=== PATIENT | female | born 1970 | race Caucasian/White ===

== ENCOUNTER → 2016-06-17 | Outpatient (CLI) | payer OTHER ==
--- NOTE | 2016-06-17 14:45 | US ---
EXAMINATION TYPE: US thyroid st tissue head/neck DATE OF EXAM: 06/17/2016 2:09 PM COMPARISON: NONE CLINICAL HISTORY: E04.1 THYROID NODULE. Patient states right side felt larger to doctor GLAND SIZE: Right Lobe: 4.6 x 1.5 x 1.2 cm Overall Parenchyma: homogenous Left Lobe: 4.1 x 1.4 x 1.1 cm Overall Parenchyma: homogeneous Isthmus Thickness: 0.3 cm NODULES RIGHT: # of nodules measured on right: 1 1. 0.3 X 0.3 x 0.2 cm cystic nodule with echogenic center at the mid pole with well-defined margin s. This nodule is wider than tall and shows no intranodular vascularity. Prior size: No previous LEFT: # of nodules measured on left: 1 1. 0.3 X 0.2 x 0.2 cm cystic nodule with echogenic center at the mid pole with well-defined margins . This nodule is wider than tall and shows no intranodular vascularity. Prior size: No previous ISTHMUS: # of nodules measured in the isthmus: 0 TECHNOLOGIST IMPRESSION: Bilateral neck scanned, no abnormal lymphadenopathy noted. Thyroid gland is normal in size with 2 small cystic nodules seen bilaterally, central colloid is susp ected. IMPRESSION: Thyroid gland is normal in size, no worrisome greater than 1 cm solid or cystic nodules are evident b ilaterally.
== END | disposition home or self-care (01) ==
LOC: RADUSWWP 13:11
PROVIDERS: ATTEND Otolaryngology
DX: E04.1 Nontoxic single thyroid nodule (principal)
CPT/HCPCS: 76536

== ENCOUNTER → 2017-01-12 | Outpatient (CLI) | payer OTHER ==
[2017-01-12 09:27] LABS: Cholesterol 253 mg/dL (<200); HDL Cholesterol 103 mg/dL (40-60)
--- NOTE | 2017-01-13 14:19 | MM ---
Reason for exam: screening (asymptomatic). Last mammogram was performed 1 year and 1 month ago. History: Patient had first child at age 35. Family history of breast cancer in grandmother. Physical Findings: A clinical breast exam by your physician is recommended on an annual basis and results should be correlated with mammographic findings. MG 3D Screening Mammo W/Cad Bilateral CC and MLO view(s) were taken. Prior study comparison: December 21, 2015, bilateral MG 3d screening mammo w/cad. November 30, 2014, bilateral MG screening mammo w CAD. The breast tissue is heterogeneously dense. This may lower the sensitivity of mammography. Finding: There are typically benign calcifications in the right breast. No significant changes in finding since December 21, 2015 and November 30, 2014. ASSESSMENT: Benign, BI-RAD 2 RECOMMENDATION: Routine screening mammogram of both breasts in 1 year.
== END | disposition home or self-care (01) ==
LOC: RADMAMWWP 07:47
PROVIDERS: ATTEND Obstetrics & Gynecology
DX: Z12.31 Encounter for screening mammogram for malignant neoplasm of breast (principal); E78.4 Other hyperlipidemia
CPT/HCPCS: 80061; 77063; G0202

== ENCOUNTER → 2018-01-15 | Outpatient (CLI) | payer OTHER ==
--- NOTE | 2018-01-19 08:47 | MM ---
Reason for exam: screening (asymptomatic). Last mammogram was performed 1 year ago. History: Patient had first child at age 35. Family history of breast cancer in grandmother. Physical Findings: A clinical breast exam by your physician is recommended on an annual basis and results should be correlated with mammographic findings. MG 3D Screening Mammo W/Cad Bilateral CC and MLO view(s) were taken. Prior study comparison: January 12, 2017, bilateral MG 3d screening mammo w/cad. December 21, 2015, bilateral MG 3d screening mammo w/cad. The breast tissue is heterogeneously dense. This may lower the sensitivity of mammography. No significant changes when compared with prior studies. ASSESSMENT: Negative, BI-RAD 1 RECOMMENDATION: Routine screening mammogram of both breasts in 1 year.
== END ==
LOC: RADMAMWWP 10:34
PROVIDERS: ATTEND Obstetrics & Gynecology
DX: Z12.31 Encounter for screening mammogram for malignant neoplasm of breast (principal)
CPT/HCPCS: 77063; 77067

== ENCOUNTER → 2019-02-21 | Outpatient (CLI) | payer OTHER ==
[2019-02-21 18:44] LABS: Chol/HDL Ratio 2.74; Cholesterol 290 mg/dL (0-200); Triglycerides <50.0 mg/dL (0.0-149.0)
== END | disposition home or self-care (01) ==
LOC: LABWHC1 14:24
PROVIDERS: ATTEND Obstetrics & Gynecology
DX: Z13.220 Encounter for screening for lipoid disorders (principal)
CPT/HCPCS: 36415; 80061

== ENCOUNTER → 2019-03-30 | Outpatient (CLI) | payer OTHER ==
--- NOTE | 2019-03-30 11:08 | MM ---
Reason for exam: screening (asymptomatic). Last mammogram was performed 1 year and 2 months ago. History: Patient had first child at age 35. Family history of breast cancer in grandmother. Physical Findings: A clinical breast exam by your physician is recommended on an annual basis and results should be correlated with mammographic findings. MG 3D Screening Mammo W/Cad Bilateral CC and MLO view(s) were taken. Prior study comparison: January 15, 2018, bilateral MG 3d screening mammo w/cad. January 12, 2017, bilateral MG 3d screening mammo w/cad. The breast tissue is heterogeneously dense. This may lower the sensitivity of mammography. There is no discrete abnormality. ASSESSMENT: Negative, BI-RAD 1 RECOMMENDATION: Routine screening mammogram of both breasts in 1 year.
== END | disposition home or self-care (01) ==
LOC: RADMAMWWP 08:07
PROVIDERS: ATTEND Obstetrics & Gynecology
DX: Z12.31 Encounter for screening mammogram for malignant neoplasm of breast (principal)
CPT/HCPCS: 77063; 77067

== ENCOUNTER → 2020-10-04 | Outpatient (CLI) | payer OTHER ==
--- NOTE | 2020-10-05 11:36 | MM ---
Reason for exam: screening (asymptomatic). Last mammogram was performed 1 year and 6 months ago. History: Patient had first child at age 35. Family history of breast cancer in maternal grandmother. Physical Findings: A clinical breast exam by your physician is recommended on an annual basis and results should be correlated with mammographic findings. MG 3D Screening Mammo W/Cad Bilateral CC and MLO view(s) were taken. Prior study comparison: March 30, 2019, bilateral MG 3d screening mammo w/cad. January 15, 2018, bilateral MG 3d screening mammo w/cad. The breast tissue is heterogeneously dense. This may lower the sensitivity of mammography. There is no discrete abnormality. ASSESSMENT: Negative, BI-RAD 1 RECOMMENDATION: Routine screening mammogram of both breasts in 1 year.
== END | disposition home or self-care (01) ==
LOC: RADMAMWWP 07:15
PROVIDERS: ATTEND Obstetrics & Gynecology
DX: Z12.31 Encounter for screening mammogram for malignant neoplasm of breast (principal); Z80.3 Family history of malignant neoplasm of breast
CPT/HCPCS: 77063; 77067

== ENCOUNTER → 2022-05-15 | Outpatient (CLI) | payer OTHER ==
--- NOTE | 2022-05-15 19:57 | MM ---
Reason for Exam: Screening (asymptomatic). Last mammogram was performed 1 year(s) and 7 month(s) ago. Patient History: Menarche at age 14. First Full-Term at age 35. Late child-bearing (after 30). Maternal grandmother had breast cancer. Last menstrual period: 03/28/2022 Risk Values: Martha 5 year model risk: 1.3%. NCI Lifetime model risk: 12.1%. Prior Study Comparison: 01/15/2018 Bilateral Screening Mammogram, [facility]. 03/30/2019 Bilateral Screening Mammogram, [facility]. 10/04/2020 Bilateral Screening Mammogram, [facility]. Tissue Density: The breast tissue is heterogeneously dense. This may lower the sensitivity of mammography. Findings: Analyzed By CAD. Asymmetric density medial left CC view anterior depth remains unchanged. There is no suspicious group of microcalcifications or new suspicious mass in either breast. Overall Assessment: Benign, BI-RAD 2 Management: Screening Mammogram of both breasts in 1 year. 1. Patient should continue monthly self breast exams. 2. A clinical breast exam by your physician is recommended on an annual basis. 3. This exam should not preclude additional follow-up of suspicious palpable abnormalities. Electronically signed and approved by: Macho Gaona M.D. Radiologist
== END | disposition home or self-care (01) ==
LOC: RADMAMWWP 06:54
PROVIDERS: ATTEND Obstetrics & Gynecology
DX: Z12.31 Encounter for screening mammogram for malignant neoplasm of breast (principal); Z80.3 Family history of malignant neoplasm of breast
CPT/HCPCS: 77063; 77067

== ENCOUNTER → 2024-02-23 | Outpatient (CLI) | payer OTHER ==
[2024-02-23 14:56] VITALS: BP 115/73; PULSE 65; RESP 16; TEMP 97.9
--- NOTE | 2024-02-23 16:51 | P.HPOB ---
History of Present Illness H&P Date: 02/23/24 Chief Complaint: Patient is here for her routine gynecologic exam This is a 53-year-old G2, P2 with an LMP of 11/13/2023. The patient is here to establish with this office. She previously saw Dr. Gilbert for her gynecologic care. Menstrual periods were regular prior to 2021 after 2021, her menstrual periods started spacing out. In 2022 she had menstrual periods in November and January. Her November menstrual period was her only 1 so far in 2023. She has been experiencing some hot flashes. In January she started having urinary symptoms including nocturia, dysuria and blood in the urine. She went to an urgent care clinic toward the end of January and was told she had a very bad urine infection. She was treated with an antibiotic for 1 week and did have some relief. About 2 weeks later she was again having urinary symptoms including blood in the urine. On 02/10/2024 she went back to the urgent care clinic and urinalysis was negative, but she was later called with the urine culture showing Enterobacter cloacae (>100K). She was started on Cipro for 10 days. She still has 2 more days of this antibiotic course she recently has noticed some low back discomfort without fever. She still notices some blood in the urine. Review of Systems The patient's weight has been stable over the last year. She denies respiratory, cardiac, or G.I. problems. : She has been having urinary symptoms with hematuria as described in the HPI. 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 History of Any Multi-Drug Resistant Organisms: None Reported Past Surgical History: Tubal Ligation Past Anesthesia/Blood Transfusion Reactions: No Reported Reaction Past Psychological History: No Psychological Hx Reported Smoking Status: Never smoker Past Alcohol Use History: None Reported Past Drug Use History: None Reported Additional History: She has been since 2002. 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 - Past Family History Mother Family Medical History: Diabetes Mellitus, Hyperlipidemia, Hypertension Additional Family Medical History / Comment(s): Type 2 diabetes. Father Family Medical History: Hyperlipidemia, Hypertension Medications and Allergies Home Medications Medication Instructions Recorded Confirmed Type Ciprofloxacin HCl [Cipro] 500 mg PO BID 10/22/24 10/22/24 History Allergies Allergy/AdvReac Type Severity Reaction Status Date / Time No Known Allergies Allergy Unverified 02/23/24 14:38 Exam Vital Signs Temp Pulse Resp BP Pulse Ox 02/23/24 14:40 97.9 F 65 16 115/73 100 Intake and Output 02/23/24 02/23/24 02/23/24 06:59 14:59 22:59 Other: Weight 62.142 kg Height 5 feet 4 inches, weight 137 pounds, BMI 23.5. This is a well-developed well-nourished white female who is alert and oriented times 3 in no acute distress. HEENT: Within normal limits. NECK: Supple without mass or thyromegaly. CHEST AND LUNGS: Clear to auscultation. HEART: Regular rate and rhythm. BREASTS: Are without mass or discharge. AXILLARY EXAM: Negative for adenopathy. BACK: Negative for CVA tenderness. ABDOMEN: Soft, nontender, without palpable masses. PELVIC EXAM: Normal external genitalia. Cervix and vagina appear normal. The cervix is slightly stenotic. There is no cervical motion tenderness. There is no unusual discharge or evidence of blood in the vagina. There is no evidence of prolapse. The uterus is midposition, nongravid size and nontender. There are no palpable adnexal masses or tenderness. RECTAL EXAM: Rectovaginal exam is negative for mass or tenderness and is negative for occult blood. EXTREMITIES: Nontender. IMPRESSION: 1. 53-year-old perimenopausal female with a 2-year history of oligomenorrhea and vasomotor symptoms. 2. Normal gynecologic exam. 3. Persistent urinary symptoms including hematuria and nocturia. She is currently on her second course of antibiotics. Her most recent urine culture on 02/10/2024 grew greater than 100,000 colonies per cc of Enterobacter cloacae which is sensitive to ciprofloxacin. She has 2 more days of a 10-day course of Cipro. No evidence of pyelonephritis on exam today. PLAN: 1. Pap smear cotest was performed. 2. Self breast exam was discussed. 3. She is due for a mammogram since her last 1 was done on 05/15/2022. The order slip will be mailed to the patient for this. 4. Clean-catch, midstream urinalysis was obtained. Since she is currently taking antibiotics, no urine culture will be obtained. I have instructed her to repeat the urine culture as recommended by the urgent care clinic and this should be done after the completion of her current antibiotic course. She will have the urine culture done at the urgent care clinic as planned. At this time I do not believe her urinary symptoms are related to any gynecologic problem. I have recommended that she establish with a primary care physician and if she is having recurrent urinary problems, consider referral to a urology doctor. 5. She will continue to keep a menstrual calendar and call if menstrual problems. 6. She was advised to return in one year for her annual well woman exam and as needed.
== END ==
LOC: WWCWWP 14:22
PROVIDERS: ATTEND Obstetrics & Gynecology

== ENCOUNTER → 2024-03-04 | Outpatient (CLI) | payer OTHER ==
--- NOTE | 2024-03-04 09:10 | XR ---
EXAMINATION TYPE: XR KUB DATE OF EXAM: 03/04/2024 8:47 AM COMPARISON: None. CLINICAL INDICATION: Female, 53 years old with history of R31.0 GROSS HEMATURIA, , FINDINGS: Large stool burden. No dilated small bowel loops. Bowel content largely obscures the renal shadows. B ilateral tubal ligation clips. IMPRESSION: Large stool burden. Correlate for constipation. Bowel content largely obscures the renal shadows. Tub al ligation clips. [facility], , 03/04/2024 9:08 AM
--- NOTE | 2024-03-04 09:36 | US ---
EXAMINATION TYPE: US pelvic complete DATE OF EXAM: 03/04/2024 COMPARISON: NONE CLINICAL INDICATION: Female, 53 years old with history of R31.0 GROSS HEMATURIA; episodes of gross he maturia, first in November. ?post-nadeem bleeding? TECHNIQUE: Transabdominal (TA). Transabdominal grayscale sonographic images of the pelvis were acquired. Doppler imaging: Not performed. FINDINGS: Date of LMP: 1 year prior EXAM MEASUREMENTS: Uterus: 8.0x3.5x4.5 cm Endometrial Stripe: 0.5 cm Right Ovary: 3.4x1.8x2.6 cm Left Ovary: 2.8x2.0x1.8 cm 1. Uterus: Anteverted wnl 2. Endometrium: wnl, some calcifications at [place] 3. Right Ovary: wnl 4. Left Ovary: wnl 5. Bilateral Adnexa: Obscured by overlying bowel gas 6. Posterior cul-de-sac: wnl there is a 3.0x2.9x3.4cm irregular mass at the lower left bladder IMPRESSION: Irregular mass in the urinary bladder wall is protruding into the bladder lumen concerning for urothe lial carcinoma. Correlate with urinalysis. Consider CT urogram with delayed imaging. Urology consulta tion and tissue sampling recommended. [facility], , 03/04/2024 9:34 AM
== END | disposition home or self-care (01) ==
LOC: RADUSWWP 08:13
PROVIDERS: ATTEND Internal Medicine
DX: R31.0 Gross hematuria (principal); N32.9 Bladder disorder, unspecified; R19.5 Other fecal abnormalities
CPT/HCPCS: 74018; 76856

== ENCOUNTER → 2024-10-11 | Outpatient (CLI) | payer OTHER ==
--- NOTE | 2024-10-11 10:29 | MM ---
Reason for Exam: Screening (asymptomatic). Last mammogram was performed 2 year(s) and 5 month(s) ago. Patient History: Menarche at age 14. First Full-Term at age 35. Late child-bearing (after 30). Postmenopausal. Maternal grandmother had breast cancer. Risk Values: Martha 5 year model risk: 1.5%. NCI Lifetime model risk: 11.8%. Prior Study Comparison: 03/30/2019 Bilateral Screening Mammogram, [facility]. 10/04/2020 Bilateral Screening Mammogram, [facility]. 05/15/2022 Bilateral MG 3D screening mammo w/cad, [facility]. Tissue Density: The breasts are heterogeneously dense, which may obscure small masses. Findings: Analyzed By CAD. There is no suspicious group of microcalcifications or new suspicious mass in either breast. Overall Assessment: Negative, BI-RAD 1 Management: Screening Mammogram of both breasts in 1 year. . Patient should continue monthly self-breast exams. A clinical breast exam by your physician is recommended on an annual basis. This exam should not preclude additional follow-up of suspicious palpable abnormalities. Note on Martha scores and lifetime risk: 1. A Martha score greater than 3% is considered moderate risk. If this is the case, consider specialist referral to assess eligibility for a risk reducing agent. 2. If overall lifetime risk for the development of breast cancer is 20% or higher, the patient may qualify for future screening with alternating mammogram and breast MRI. [facility], , 10/11/2024 10:26 AM. Electronically signed and approved by: Walt Gonzalez M.D.
== END | disposition home or self-care (01) ==
LOC: RADMAMWWP 09:34
PROVIDERS: ATTEND Obstetrics & Gynecology
DX: Z12.31 Encounter for screening mammogram for malignant neoplasm of breast (principal); R92.333 Mammographic heterogeneous density, bilateral breasts; Z78.0 Asymptomatic menopausal state; Z80.3 Family history of malignant neoplasm of breast
CPT/HCPCS: 77063; 77067